=== PATIENT | female | born 1960 | race Caucasian/White ===

== ENCOUNTER 2016-06-11 07:39 | Day surgery (SDC) | payer BC ==
--- NOTE | ~2016-06-11 | EGD ---
EGD REPORT [facility] [address] [address] NAME: DESI WATSON : 62 STATUS : REG [facility]#: [id number] AGE: 56 ADM/REG DATE : 06/11/16 MR#: [id number] REPORT SERV DATE: 06/11/16 DICTATED BY: BRYAN RODRIGUEZ DATE: 06/11/16 REPORT STATUS : Draft TRANSCRIBED BY: [facility] DATE: 06/11/16 Endoscopy Center Patient Name: Desi Watson Date of : 1960 Attending MD: BRYAN RODRIGUEZ MD Procedure Date No Time: 06/11/2016 Procedure: Upper GI endoscopy Indications: Dysphagia, Heartburn, Suspected esophageal reflux Referring MD: ARA ANNE Medicines: as per anesthesia Complications: No immediate complications. Procedure: Pre-Anesthesia Assessment: - ASA Grade Assessment: II - A patient with mild systemic disease. After obtaining informed consent, the endoscope was passed under direct vision. Throughout the procedure, the patient's blood pressure, pulse, and oxygen saturations were monitored continuously. The GIF [id number] was introduced through the mouth, and advanced to the second part of duodenum. The upper GI endoscopy was accomplished without difficulty. The patient tolerated the procedure. Findings: The examined esophagus was normal. The scope was withdrawn. Dilation was performed with a Hernandes dilator with no resistance at 42 Fr. The entire examined stomach was normal. The cardia and gastric fundus were normal on retroflexion. The examined duodenum was normal. Impression: - Normal esophagus. Dilated. - Normal stomach. - Normal examined duodenum. Recommendation: - Follow an antireflux regimen. - Continue present medications. Procedure Code(s): --- Professional --- 65686, Esophagogastroduodenoscopy, flexible, transoral; diagnostic, including collection of specimen(s) by brushing or washing, when performed (separate procedure) 04368, Dilation of esophagus, by unguided sound or bougie, single or multiple passes Diagnosis Code(s): --- Professional --- EGD REPORT [facility] [address] [place], [place] [address]christie [facility] [place] [address] NAME: DESI WATSON : [birth year] STATUS : REG [facility] PAT#: [id number] AGE: 56 ADM/REG DATE : 06/11/16 MR#: [id number] REPORT SERV DATE: 06/11/16 DICTATED BY: BRYAN RODRIGUEZ. DATE: 06/11/16 REPORT STATUS : Draft TRANSCRIBED BY: [email or web address] DATE: 06/11/16 R13.10, Dysphagia, unspecified R12, Heartburn CPT copyright 2013 [employer]. All rights reserved. The codes documented in this report are preliminary and upon social service technician review may be revised to meet current compliance requirements. BRYAN RODRIGUEZ MD 06/11/2016 9:35 AM This report has been signed electronically. Number of Addenda: 0 Note Initiated On: 06/11/2016 9:16 AM Scope Withdrawal Time 0 hours 0 minutes 0 seconds [address] [place] [address]
[~2016-06-11 07:39] MED LIST: ALLEGRA-D24 HOUR PO; CALCIUM/VIT D PO; LEVSINTAB PO/SL; LORTAB 5 PO; MULTIVITAMI1 PO; NEXIUM40 PO; OS500+D PO; PREM625 PO; SYN1 PO; SYN112 PO; [UNRECOGNIZED DRUG - OTHER] IV
[2016-07-06] MEDS ORDERED: VITAMIN D1000 UNI1 PO (09:27)
[2016-07-06] MEDS ORDERED: ASAB PO (09:27)
[2016-07-06] MEDS ORDERED: OS500+D PO (09:27)
[2016-07-06] MEDS ORDERED: MYRBETRIQ25 MG PO (09:28)
== END 2016-06-11 23:59 | disposition home or self-care (01) ==
LOC: DMU 07:39
PROVIDERS: Internal Medicine Gastroenterology
PROC: 0DJ08ZZ Inspection of Upper Intestinal Tract, Via Natural or Artificial Opening Endoscopic (ICD-10-PCS; principal; 2016-06-11 09:00)
PROC: 0D757ZZ Dilation of Esophagus, Via Natural or Artificial Opening (ICD-10-PCS; 2016-06-11 09:00)
DX: R13.10 Dysphagia, unspecified (principal); K21.9 Gastro-esophageal reflux disease without esophagitis; E03.9 Hypothyroidism, unspecified; Z88.2 Allergy status to sulfonamides; D68.0 Von Willebrand disease; M81.0 Age-related osteoporosis without current pathological fracture; Z88.8 Allergy status to other drugs, medicaments and biological substances; G43.909 Migraine, unspecified, not intractable, without status migrainosus; Z90.89 Acquired absence of other organs; Z90.49 Acquired absence of other specified parts of digestive tract; Z90.710 Acquired absence of both cervix and uterus; Z85.820 Personal history of malignant melanoma of skin; Z98.890 Other specified postprocedural states; Z79.899 Other long term (current) drug therapy